=== PATIENT | male | born 1950 | race Caucasian/White ===

== ENCOUNTER 2018-10-10 10:39 | Observation (INO) | payer MEDICARE, OTHER ==
[2018-10-10] MEDS ORDERED: Colace 100 MG PO PRN (11:23)
[2018-10-10] MEDS ORDERED: TYLENOL 325 MG PO PRN (11:23)
[2018-10-10] MEDS ORDERED: solu-MEDROL 125 MG IV ONE (11:30)
[2018-10-10] MEDS ORDERED: Sodium Chloride 0.9% 10 ML FLUSH Syringe IV PRN (11:30)
[2018-10-10 11:48] LABS: BASOPHIL % 0.8 % (0.0-0.4); Basophil (Absolute #) 0.08 (0-0.4); Eosinophil % 5.3 % (0.00-5.0); Eosinophil (Absolute #) 0.52 (0-0.5); Granulocyte Absolute (ANC) 6.32 (1.4-6.9); Granulocytes % 64.7 % (36.0-66.0); Hematocrit 45.7 % (42-50); Hemoglobin 15.2 gm/dl (12.5-18.0); Lymphocyte (Absolute #) 1.21 (1.0-4.6); Lymphocytes % 12.4 % (24.0-44.0); Mean Cell Volume 89.1 fl (78-100); Mean Corpuscular Hemoglobin 29.6 pg (26-32); Mean Corpuscular Hgb Concent. 33.3 g/dl (32-36); Mean Platelet Volume 8.2 fl (6-9.5); Monocyte (Absolute #) 1.64 (0.0-1.3); Monocytes % 16.8 % (0.0-12.0); Platelet Count 202 K/mm3 (150-450); Red Blood Count 5.13 M/mm3 (4.1-5.6); Red Cell Distribution Width 16.1 % (11.5-14.0); White Blood Count 9.8 K/mm3 (4.0-10.5)
[2018-10-10 12:08] LABS: ALBUMIN 4.6 g/dL (3.5-5.0); ALKALINE PHOSPHATASE 78 U/L (38-126); ANION GAP 13.2 MEQ/L (5-15); BLOOD UREA NITROGEN 13 mg/dL (9-20); CHLORIDE 99 mmol/L (98-107); Calcium 9.5 mg/dL (8.4-10.2); Carbon Dioxide 30 mmol/L (22-30); Glucose 128 mg/dL (74-106); NT PRO BNP 143 pg/mL (0-900); Potassium 4.2 mmol/L (3.5-5.1); SGOT/AST 21 U/L (17-59); SGPT/ALT 15 U/L (0-50); SODIUM 139 mmol/L (137-145)
[2018-10-10 12:12] LABS: Slide Review 1 YES
[2018-10-10] MEDS ORDERED: NEURONTIN 300 MG PO PRN (12:13)
[2018-10-10] MEDS ORDERED: NON-FORMULARY ITEM (Ipratropium/Albuterol Sulfate [Combivent Inhaler] 15 GM) IH PRN (12:13)
[2018-10-10 12:29] LABS: INFLUENZA A NEGATIVE (NEGATIVE); INFLUENZA B NEGATIVE (NEGATIVE)
[2018-10-10 12:32] LABS: RESPIRATORY SYNCTIAL VIRUS POSITIVE (Negative)
--- NOTE | 2018-10-10 12:34 | XRAY ---
Indication: Short of breath. Fever and chills. Comparison: August 14, 2014. PA/lateral chest again demonstrates left pneumonectomy with compensatory hyperinflation of the right lung. No focal infiltrate, consolidation, or large effusion. Heart is not grossly enlarged. Bony thorax intact again with mild osteopenia and degenerative changes. Impression: Stable nonacute chest with chronic features.
[2018-10-10] MEDS: Zithromax 500 MG/ 250 ML NaCl Premix 500 MG/250 ML IVPB IV SCH (12:49)
[2018-10-10] MEDS: ENOXAPARIN SODIUM SQ SCH (12:49)
[2018-10-10] MEDS: ROCEPHIN 1 Gm-D5w 50 ml Bag** 1 G/50 ML IVPB IV SCH (12:49)
[2018-10-10] MEDS: Sodium Chloride 0.9% 10 ML FLUSH Syringe IV SCH ×2 (12:50→23:01)
[2018-10-10] MEDS ORDERED: OCEAN Nasal Spray NS PRN (13:56)
[2018-10-10] MEDS: solu-MEDROL 125 MG IV SCH ×2 (17:27→23:28)
[2018-10-10] MEDS: DUONEB 0.5-3 MG/3 ml Neb IH PRN ×2 (19:11→23:21)
[2018-10-10] MEDS ORDERED: CEPACOL SORE THROAT LOZENGE PO PRN (21:02)
[2018-10-10] MEDS ORDERED: Ambien 10 MG PO SCH (22:00)
[2018-10-11] MEDS: DUONEB 0.5-3 MG/3 ml Neb IH SCH ×3 (03:59→10:59)
[2018-10-11] MEDS: solu-MEDROL 125 MG IV SCH ×3 (05:37→11:51)
[2018-10-11] MEDS: Sodium Chloride 0.9% 10 ML FLUSH Syringe IV SCH ×2 (05:37→06:14)
[2018-10-11] MEDS ORDERED: Protonix 40MG Tablet PO SCH (10:00)
[2018-10-11] MEDS ORDERED: NON-FORMULARY ITEM (Omeprazole [Prilosec] 40 MG) PO SCH (10:00)
[2018-10-11] MEDS ORDERED: NON-FORMULARY ITEM (Sertraline Hcl 100 Mg [Zoloft 100 Mg] 100 MG) PO SCH (10:00)
[2018-10-11] MEDS ORDERED: ZOLOFT 50 MG TABLET PO SCH (10:00)
[2018-10-11] MEDS ORDERED: Flomax 0.4 MG PO SCH (10:00)
[2018-10-11] MEDS: ENOXAPARIN SODIUM SQ SCH ×2 (10:25→10:36)
[2018-10-11] MEDS: Zithromax 500 MG/ 250 ML NaCl Premix 500 MG/250 ML IVPB IV SCH (10:25)
[2018-10-11] MEDS: ROCEPHIN 1 Gm-D5w 50 ml Bag** 1 G/50 ML IVPB IV SCH (10:25)
[2018-10-11 11:04] VITALS: O2SAT 93
--- NOTE | 2018-10-11 12:08 | PCM.DCORD ---
- Discharge Discharge Date: 10/11/18 Disposition: Home, Self-Care Condition: Good Prescriptions: New Cefdinir 300 mg PO BID #14 capsule Prednisone 20 mg [Deltasone 20 mg] 20 mg PO UD #10 tablet Continue Sertraline HCl 100 mg [Zoloft 100 MG] 100 mg PO DAILY Zolpidem Tartrate [Ambien] 10 mg PO HS Omeprazole [Prilosec] 40 mg PO DAILY Ipratropium/Albuterol Sulfate [Combivent Inhaler] 15 gm IH UD PRN PRN Reason: breathing Gabapentin 1 tab PO TID PRN PRN Reason: Pain Tamsulosin HCl 0.4 mg [Flomax 0.4 MG] 1 tab PO DAILY Instructions: Respiratory Syncytial Virus, Adult (DC) Additional Instructions: Continue home oxygen. Return to ER or clinic if worsening shortness of breath, fever, nausea or vomiting or any other concerns. Follow up with: HAKEEM JURADO [Primary Care Provider] - 1 Week
[2018-10-11 12:23] VITALS: BP 113/77; PULSE 112
--- NOTE | 2018-10-14 13:36 | DS ---
ADMISSION DIAGNOSES: 1) Acute exacerbation of chronic obstructive pulmonary disease. 2) Severe chronic obstructive pulmonary disease. 3) History of left lung resection due to lung cancer. 4) Respiratory syncytial virus bronchiolitis. DISCHARGE DIAGNOSES: 1) ACUTE EXACERBATION OF CHRONIC OBSTRUCTIVE PULMONARY DISEASE. 2) SEVERE CHRONIC OBSTRUCTIVE PULMONARY DISEASE. 3) HISTORY OF LEFT LUNG RESECTION DUE TO LUNG CANCER. 4) RESPIRATORY SYNCYTIAL VIRUS BRONCHIIOLITIS. HISTORY OF PRESENT ILLNESS: This is a 68 year old patient of mine who presented to the clinic on 10/10/2018. He reported he started feeling bad two nights ago with fever and chills. The fever was tactile as he did not have thermometer. He reports that he then got very congested and had problems since them. He reports he has been unable to ambulate without his oxygen when usually he can at home. He has had a productive cough although he is not coughing a lot. He reported he was not taking fluids very well. He reports that he was supposed to have surgery on his prostate this coming Saturday. The patient overnight reports that his breathing was better. RT noticed that he seemed more confused in the middle of the night and the patient reports that may have just been a dream that he may have been dreaming. He denies any confusion at this time. He reports he has been able to eat, feels like his breathing is better. REVIEW OF SYSTEMS: No abdominal pain. No chest pain. He has some shortness of breath. No lower extremity edema. No rashes. No difficulty urinating. PAST MEDICAL HISTORY: Lung cancer status post lung resection. Chronic obstructive pulmonary disease. Depression. Chronic migraines. Hypoxia due to chronic obstructive pulmonary disease. PAST SURGICAL HISTORY: Hernia repair. Left lung removed [address] Brodie Chopra and Dr. Gilson Ibarra. Splenectomy. Colonoscopy in 2009. MEDICATIONS: Please see the home medication reconciliation list. ALLERGIES: SULFA. SOCIAL HISTORY: No tobacco use. He is a and lives alone. Former [employer]. FAMILY HISTORY: Noncontributory. PHYSICAL EXAMINATION: VITAL SIGNS: Temperature current 97.8F, heart rate 101, respiratory rate 24, blood pressure 130/77. Oxygen saturation 93% on nasal cannula. GENERAL: The patient is a pleasant talkative man sitting up in no acute distress. CVS: He has a regular rate and rhythm. No murmurs, gallops or rubs are appreciated. CHEST: He has decreased breath sounds on the left. Clear to auscultation on the right. No crackles or wheezes. ABDOMEN: Soft, nontender, nondistended. SKIN: Warm, dry and intact. EXTREMITIES: No clubbing, cyanosis or edema. LABORATORY DATA AND TESTS: CBC within normal limits. CMP with glucose 128. He was positive for respiratory syncytial virus, negative for influenza A and B. Chest x-ray did not show any acute changes. Please see the radiologist report for the full dictation. HOSPITAL COURSE: 1) ACUTE CHRONIC OBSTRUCTIVE PULMONARY DISEASE EXACERBATION: He was started on IV steroids, azithromycin and ceftriaxone. I will plan to discharge him on seven more days of Cefdinir 300 mg p.o. b.i.d. as well as prednisone 20 mg tablet two tablets p.o. daily for three days and then one tablet p.o. daily for four days, and one tablet p.o. daily for four days and will have him follow up with me in the clinic. Will continue oxygen at home as well as his breathing treatments. 2) SEVERE CHRONIC OBSTRUCTIVE PULMONARY DISEASE: Will continue with the above treatment. 3) HISTORY OF LEFT LUNG RESECTION FOR LUNG CANCER: He does remarkably well given the fact that he had his left lung removed. 4) RESPIRATORY SYNCYTIAL VIRUS BRONCHIOLITIS: Will continue supportive treatment at home. DISPOSITION: The patient was discharged to home in fair condition. DISCHARGE MEDICATIONS: Please see the discharge order.
== END 2018-10-11 12:55 | disposition home or self-care (01) ==
LOC: MED SURG 11:02
PROVIDERS: ADMIT Internal Medicine; ATTEND Internal Medicine
DX: J44.1 Chronic obstructive pulmonary disease with (acute) exacerbation (principal); J21.0 Acute bronchiolitis due to respiratory syncytial virus; J44.0 Chronic obstructive pulmonary disease with (acute) lower respiratory infection; Z85.118 Personal history of other malignant neoplasm of bronchus and lung; Z90.2 Acquired absence of lung [part of]; Z79.899 Other long term (current) drug therapy
CPT/HCPCS: 36415; 71046; 80053; 83880; 85025; 87040; 87631; 93005; 93268; 94150; 94640; 94760; 94762; G0378; J0456; J0696; J1650; J2930; A9270-GY

== ENCOUNTER 2018-10-12 02:39 | Emergency (ER) | payer MEDICARE, OTHER ==
[2018-10-12] MEDS ORDERED: DUONEB 0.5-3 MG/3 ml Neb IH ONE ×4 (03:06→07:49)
[2018-10-12] MEDS ORDERED: LEVOFLOXACIN 750MG/150ML D5W 750 MG/150 ML BAG IV STA (03:06)
[2018-10-12] MEDS ORDERED: solu-MEDROL 125 MG IV ONE (03:06)
[2018-10-12] MEDS ORDERED: solu-MEDROL 125 MG ONE (03:12)
[2018-10-12] MEDS ORDERED: LEVOFLOXACIN 750MG/150ML D5W 750 MG/150 ML BAG IV ONE (03:13)
[2018-10-12 03:18] LABS: BASOPHIL % 0.1 % (0.0-0.4); Basophil (Absolute #) 0.01 (0-0.4); Eosinophil (Absolute #) 0 (0-0.5); Granulocyte Absolute (ANC) 11.87 (1.4-6.9); Granulocytes % 80.6 % (36.0-66.0); Hematocrit 46.5 % (42-50); Hemoglobin 15.5 gm/dl (12.5-18.0); Lymphocyte (Absolute #) 0.92 (1.0-4.6); Lymphocytes % 6.3 % (24.0-44.0); Mean Cell Volume 86.4 fl (78-100); Mean Corpuscular Hemoglobin 28.8 pg (26-32); Mean Corpuscular Hgb Concent. 33.3 g/dl (32-36); Mean Platelet Volume 8.6 fl (6-9.5); Monocyte (Absolute #) 1.92 (0.0-1.3); Platelet Count 276 K/mm3 (150-450); Red Blood Count 5.38 M/mm3 (4.1-5.6); Red Cell Distribution Width 15.5 % (11.5-14.0); White Blood Count 14.7 K/mm3 (4.0-10.5)
[2018-10-12] MEDS ORDERED: XYLOCAINE 2% Uro-Jet TOP ONE (03:18)
[2018-10-12] MEDS ORDERED: XYLOCAINE 2% Uro-Jet ONE (03:20)
[2018-10-12 03:34] LABS: A-aADO2 61; ABG HEMOGLOBIN 15.5; ABG POTASSIUM 3.9 (3.5-5.1); ABG SITE RIGHT RADIAL; ALLEN TEST OK? YES; ARTERIAL BLD GAS O2 SATURATION 99.8 % (95-100); ARTERIAL BLOOD GAS BASE EXCESS 4.8 (-2.0-2.0); ARTERIAL BLOOD GAS FIO2 36 %; ARTERIAL BLOOD GAS PCO2 55 mmHg (35-45); ARTERIAL BLOOD GAS PO2 127 mmHg (75-100); ARTERIAL BLOOD GAS pH 7.37 (7.35-7.45); CARBOXYHEMOGLOBIN 1.7 % THgb (0.0-6.9); HCO3- 31.8 (22-28); HGB O2 SAT 96.9 g/dF (94-100); Lactic Acid 1.1 (0.4-2.0); Methhemoglobin 1.2 % (1.4-1.5); paO2 pAO1 0.68
[2018-10-12 03:36] LABS: INR 1.01 (0.8-3.0); PROTIME 11.7 SECONDS (8.83-12.87)
[2018-10-12 03:49] LABS: ALBUMIN 4.9 g/dL (3.5-5.0); ALKALINE PHOSPHATASE 84 U/L (38-126); ANION GAP 15.3 MEQ/L (5-15); BLOOD UREA NITROGEN 21 mg/dL (9-20); CHLORIDE 90 mmol/L (98-107); Calcium 10.2 mg/dL (8.4-10.2); Carbon Dioxide 34 mmol/L (22-30); Creatinine 1 0.64 mg/dL (0.66-1.25); Glucose 135 mg/dL (74-106); MAGNESIUM 2.4 mg/dL (1.6-2.3); NT PRO BNP 1040 pg/mL (0-900); Potassium 4.5 mmol/L (3.5-5.1); SGOT/AST 42 U/L (17-59); SGPT/ALT 25 U/L (0-50); SODIUM 135 mmol/L (137-145); Total Protein 8.7 g/dL (6.3-8.2)
[2018-10-12] MEDS ORDERED: Ativan 2 MG/1 ML VIAL IV ONE (04:51)
[2018-10-12] MEDS ORDERED: Ativan 2 MG/1 ML VIAL ONE (04:52)
[2018-10-12 05:51] LABS: Slide Review 1 YES
--- NOTE | 2018-10-12 06:44 | ERPHSYRPT ---
- History of Present Illness Source: patient Exam Limitations: no limitations Patient Subjective Stated Complaint: pt is alert and oriented. pt is brought in via ems. pt states that he was diagnosed and admitted here with RSV. pt discharged at 1200 on 10/11/18. pt states that he has been unable to urinate since then. pt is SOB and resp rate is 32 per minute. pt is lung sounds diminished on right side. no breath sounds on left. pt states he's had a left lobectomy. pt belly is distended and firm. Triage Nursing Assessment: see above Physician History: Pt is a 68 y/o male that presented to the ED secondary to inability to urinate. He was d/c on 10/11/18 from the hospital for RSV infection. Pt now is in the ED, with severe SOB, wheeze, and use of accessory muscles. Pt denies F/C/S. He is SOB, and dyspnic. Pt has no chest pain or palpitations. No N/V/D. He is suppose to have TURP surgery on Saturday, that is postponed secondary to his respiratory status, and now he is not able to urinate, and has bladder pressure. Timing/Duration: yesterday Cough Quality/Degree: productive cough Modifying Factors: Improves With: albuterol inhaler, albuterol nebulizer, exertion, lying down, oxygen Allergies/Adverse Reactions: Sulfa (Sulfonamide Antibiotics) [Sulfa(Sulfonamide Antibiotics)] Allergy (Mild, Verified 02/05/12 20:55) HIVES AND ITCHING Home Medications: Sertraline HCl 100 mg [Zoloft 100 MG] 100 mg PO DAILY 02/05/12 [History] Zolpidem Tartrate [Ambien] 10 mg PO HS 12/14/13 [History] Omeprazole [Prilosec] 40 mg PO DAILY 08/10/14 [History] Gabapentin 1 tab PO TID PRN 10/10/18 [History] Ipratropium/Albuterol Sulfate [Combivent Inhaler] 15 gm IH UD PRN 10/10/18 [ History] Tamsulosin HCl 0.4 mg [Flomax 0.4 MG] 1 tab PO DAILY 10/10/18 [History] Hx Tetanus, Diphtheria Vaccination/Date Given: No Hx Influenza Vaccination/Date Given: Yes Hx Pneumococcal Vaccination/Date Given: Yes (2013) Immunizations Up to Date: Yes - Review of Systems Constitutional: Fatigue Eyes: No Symptoms Ears, Nose, & Throat: No Symptoms Respiratory: Cough, Dyspnea, Dyspnea on Exertion (NARANJO), Wheezing Cardiac: No Chest Pain, No Syncope Abdominal/Gastrointestinal: No Abdominal Pain, No Nausea, No Vomiting, No Diarrhea Genitourinary Symptoms: Urinary Retention Musculoskeletal: No Back Pain, No Neck Pain Neurological: No Dizziness, No Focal Weakness, No Sensory Changes - Past Medical History Pertinent Past Medical History: Yes Neurological History: Migraines ENT History: No Pertinent History Cardiac History: No Pertinent History Respiratory History: Lung Cancer, Pneumonia Endocrine Medical History: No Pertinent History Musculoskeletal History: Arthritis, Osteoarthritis GI Medical History: No Pertinent History History: No Pertinent History Psycho-Social History: Anxiety Male Reproductive Disorders: No Pertinent History - Past Surgical History Past Surgical History: Yes Neuro Surgical History: No Pertinent History Cardiac: No Pertinent History Respiratory: Lobectomy, Other Gastrointestinal: Hernia Repair Genitourinary: No Pertinent History Musculoskeletal: No Pertinent History Male Surgical History: No Pertinent History Other Surgical History: spleenectomy 2010. , cataract surg. ginger. - Social History Smoking Status: Former smoker Exposure to second hand smoke: No Drug Use: none Patient Lives Alone: No - Nursing Vital Signs Nursing Vital Signs: Initial Vital Signs Temperature 99.4 F 10/12/18 02:50 Pulse Rate 117 H 10/12/18 02:50 Respiratory Rate 32 H 10/12/18 02:50 Blood Pressure 143/101 10/12/18 02:50 O2 Sat by Pulse Oximetry 97 10/12/18 02:50 Pain Scale Pain Intensity 6 - Physical Exam General Appearance: moderate distress, alert, anxiety, lethargy, thin Eye Exam: PERRL/EOMI, eyes nml inspection Ears, Nose, Throat Exam: normal ENT inspection, TMs normal, pharynx normal, moist mucous membranes Respiratory Exam: respiratory distress, accessory muscle use, prolonged expirations, wheezing Cardiovascular Exam: tachycardia Gastrointestinal/Abdomen Exam: soft, No tenderness Male Genitalia Exam: other (Urinary retention ) Back Exam: normal inspection, No CVA tenderness, No vertebral tenderness Extremity Exam: normal inspection, normal range of motion Neurologic Exam: alert, oriented x 3, cooperative, normal mood/affect, sensation nml, No motor deficits SpO2: 97 - Course Nursing assessment & vital signs reviewed: Yes EKG Interpreted by Me: Sinus Tach (120s) Ordered Tests: Active Orders 24 hr Category Date Time Status Application Project Leader STAT Care 10/12/18 03:09 Active Mclean [Catheter-Cope Mclean] STAT Care 10/12/18 03:11 Active IV Insertion STAT Care 10/12/18 03:06 Active Oxygen-ED Only Nasal Cannula 4 lpm Care 10/12/18 03:06 Active CHEST WITH CONTRAST [CT] Stat Exams 10/12/18 04:31 Taken ARTERIAL BLOOD GASES Stat Lab 10/12/18 03:15 Completed BLOOD CULTURE Stat Lab 10/12/18 03:30 Received CBC W DIFF Stat Lab 10/12/18 02:47 Completed CMP Stat Lab 10/12/18 02:47 Completed CULTURE,SPUTUM Stat Lab 10/12/18 03:08 Uncollected D-DIMER QUANTITATION Stat Lab 10/12/18 02:47 Completed Lactic Acid Stat Lab 10/12/18 03:15 Completed MAGNESIUM Stat Lab 10/12/18 02:47 Completed NT PRO BNP Stat Lab 10/12/18 02:47 Completed PROTIME WITH INR Stat Lab 10/12/18 02:47 Completed TROPONIN Q3H Lab 10/12/18 02:47 Completed TROPONIN Q3H Lab 10/12/18 06:15 Completed TROPONIN Q3H Lab 10/12/18 09:15 Ordered TROPONIN Q3H Lab 10/12/18 12:15 Ordered TROPONIN Q3H Lab 10/12/18 15:15 Ordered TROPONIN Q3H Lab 10/12/18 18:15 Ordered TROPONIN Q3H Lab 10/12/18 21:15 Ordered Peak Expiratory Flow Rate ONCE RT 10/12/18 03:58 Active Respiratory Nebulizer STAT RT 10/12/18 03:10 Completed Respiratory Therapy Assessment DAILY RT 10/12/18 03:57 Active Medication Summary Discontinued Medications Generic Name Dose Route Start Last Admin Trade Name Freq PRN Reason Stop Dose Admin Albuterol/Ipratropium 3 ml 10/12/18 03:06 10/12/18 03:27 Duoneb 0.5-3 Mg/3 Ml Neb IH 10/12/18 03:07 3 ml STAT ONE Administration Albuterol/Ipratropium Confirm 10/12/18 03:16 Duoneb 0.5-3 Mg/3 Ml Neb Administered 10/12/18 03:17 Dose 3 ml IH .STK-MED ONE Levofloxacin/Dextrose 750 mg in 150 mls @ 100 mls/hr 10/12/18 03:06 10/12/18 04:48 Levofloxacin 750mg/150ml D5w IV 10/12/18 04:35 Infused STAT STA Infusion Levofloxacin/Dextrose Confirm 10/12/18 03:13 Levofloxacin 750mg/150ml D5w Administered 10/12/18 03:14 Dose 750 mg in 150 mls @ ud IV .STK-MED ONE Lidocaine HCl 200 mg 10/12/18 03:18 10/12/18 03:25 Xylocaine 2% Uro-Jet TOP 10/12/18 03:19 200 mg STAT ONE Administration Lidocaine HCl Confirm 10/12/18 03:20 Xylocaine 2% Uro-Jet Administered 10/12/18 03:21 Dose 200 mg .ROUTE .STK-MED ONE Lorazepam 1 mg 10/12/18 04:51 10/12/18 04:56 Ativan 2 Mg/1 Ml Vial IV 10/12/18 04:52 1 mg STAT ONE Administration Lorazepam Confirm 10/12/18 04:52 Ativan 2 Mg/1 Ml Vial Administered 10/12/18 04:53 Dose 2 mg .ROUTE .STK-MED ONE Methylprednisolone Sodium Succinate 125 mg 10/12/18 03:06 10/12/18 03:15 Solu-Medrol 125 Mg IV 10/12/18 03:07 125 mg STAT ONE Administration Methylprednisolone Sodium Succinate Confirm 10/12/18 03:12 Solu-Medrol 125 Mg Administered 10/12/18 03:13 Dose 125 mg .ROUTE .STK-MED ONE Lab/Rad Data: Laboratory Result Diagrams 10/12/18 02:47 10/12/18 02:47 Laboratory Results 10/12/18 10/12/18 10/12/18 Range/Units 06:15 03:15 02:47 WBC (4.0-10.5) K/mm3 RBC (4.1-5.6) M/mm3 Hgb (12.5-18.0) gm/dl Hct (42-50) % MCV (78-100) fl MCH (26-32) pg MCHC (32-36) g/dl RDW (11.5-14.0) % Plt Count (150-450) K/mm3 MPV (6-9.5) fl Gran % (36.0-66.0) % Eos # (Auto) (0-0.5) Absolute Lymphs (auto) (1.0-4.6) Absolute Monos (auto) (0.0-1.3) Lymphocytes % (24.0-44.0) % Monocytes % (0.0-12.0) % Eosinophils % (0.00-5.0) % Basophils % (0.0-0.4) % Absolute Granulocytes (1.4-6.9) Basophils # (0-0.4) PT (8.83-12.87) SECONDS INR (0.8-3.0) D-Dimer (215-500) ng/mL Puncture Site RIGHT RADIAL pCO2 55 H (35-45) mmHg pO2 127 H* (75-100) mmHg Base Excess 4.8 H (-2.0-2.0) O2 Saturation 96.9 (94-100) g/dF ABG pH 7.37 (7.35-7.45) ABG HCO3 31.8 H* (22-28) ABG O2 Sat (Measured) 99.8 (95-100) % Aron Test YES A-a Gradient 61 a/A Ratio 0.68 Hemoglobin 15.5 Carboxyhemoglobin 1.7 (0.0-6.9) % THgb Methemoglobin 1.2 L (1.4-1.5) % Temperature 37.0 C POC O2 Flow Rate 36 % Sodium (137-145) mmol/L Potassium 3.9 (3.5-5.1) mmol/L Chloride (98-107) mmol/L Carbon Dioxide (22-30) mmol/L Anion Gap (5-15) MEQ/L BUN (9-20) mg/dL Creatinine (0.66-1.25) mg/dL Estimated GFR ML/MIN Glucose (74-106) mg/dL Lactic Acid 1.1 (0.4-2.0) Calcium (8.4-10.2) mg/dL Magnesium (1.6-2.3) mg/dL Total Bilirubin (0.2-1.3) mg/dL AST (17-59) U/L ALT (0-50) U/L Alkaline Phosphatase (38-126) U/L Troponin I < 0.012 < 0.012 (0.000-0.034) ng/mL NT-Pro-B Natriuret Pep (0-900) pg/mL Serum Total Protein (6.3-8.2) g/dL Albumin (3.5-5.0) g/dL Slides for Path Review 10/12/18 10/12/18 10/12/18 Range/Units 02:47 02:47 02:47 WBC 14.7 H (4.0-10.5) K/mm3 RBC 5.38 (4.1-5.6) M/mm3 Hgb 15.5 (12.5-18.0) gm/dl Hct 46.5 (42-50) % MCV 86.4 (78-100) fl MCH 28.8 (26-32) pg MCHC 33.3 (32-36) g/dl RDW 15.5 H (11.5-14.0) % Plt Count 276 D (150-450) K/mm3 MPV 8.6 (6-9.5) fl Gran % 80.6 H (36.0-66.0) % Eos # (Auto) 0 (0-0.5) Absolute Lymphs (auto) 0.92 L (1.0-4.6) Absolute Monos (auto) 1.92 H (0.0-1.3) Lymphocytes % 6.3 L (24.0-44.0) % Monocytes % 13.0 H (0.0-12.0) % Eosinophils % 0.0 (0.00-5.0) % Basophils % 0.1 (0.0-0.4) % Absolute Granulocytes 11.87 H (1.4-6.9) Basophils # 0.01 (0-0.4) PT 11.7 (8.83-12.87) SECONDS INR 1.01 (0.8-3.0) D-Dimer 1135 H* (215-500) ng/mL Puncture Site pCO2 (35-45) mmHg pO2 (75-100) mmHg Base Excess (-2.0-2.0) O2 Saturation (94-100) g/dF ABG pH (7.35-7.45) ABG HCO3 (22-28) ABG O2 Sat (Measured) (95-100) % Aron Test A-a Gradient a/A Ratio Hemoglobin Carboxyhemoglobin (0.0-6.9) % THgb Methemoglobin (1.4-1.5) % Temperature C POC O2 Flow Rate % Sodium 135 L (137-145) mmol/L Potassium 4.5 (3.5-5.1) mmol/L Chloride 90 L (98-107) mmol/L Carbon Dioxide 34 H (22-30) mmol/L Anion Gap 15.3 H (5-15) MEQ/L BUN 21 H (9-20) mg/dL Creatinine 0.64 L (0.66-1.25) mg/dL Estimated GFR > 60.0 ML/MIN Glucose 135 H (74-106) mg/dL Lactic Acid (0.4-2.0) Calcium 10.2 (8.4-10.2) mg/dL Magnesium 2.4 H (1.6-2.3) mg/dL Total Bilirubin 0.40 (0.2-1.3) mg/dL AST 42 (17-59) U/L ALT 25 (0-50) U/L Alkaline Phosphatase 84 (38-126) U/L Troponin I (0.000-0.034) ng/mL NT-Pro-B Natriuret Pep 1040 H (0-900) pg/mL Serum Total Protein 8.7 H (6.3-8.2) g/dL Albumin 4.9 (3.5-5.0) g/dL Slides for Path Review YES - Progress Progress: unchanged Air Movement: poor Progress Note: 10/12/18 06:57 Pt was signed out to Dr peterson. 10/12/18 07:11 Pt had Solu Medrol IV, neb treatments and Levaquin. He had elevated D dimer, and a CT for PE showed small filling defect, but he had recurrence of his Lung CA, on R, with enlarged adrenal nodule, that all represent metastatic dsx. As pt has recent diagnosis of RSV, and is now in respiratory failure, [facility] Blood Culture(s) Obtained: No Antibiotics given: Yes - Departure Time of Disposition: 07:19 Departure Disposition: Transfer Clinical Impression: Respiratory failure with hypoxia Condition: Poor Critical Care Time: Yes Critical Care Time(excluding separately billable procedures): 30-74 minutes Referrals: HAKEEM JURADO [Primary Care Provider] - Additional Instructions: Pt [facility] be [facility] Dr Schafer is accepting.
[2018-10-12 07:28] VITALS: BP 141/97
[2018-10-12 08:10] VITALS: PULSE 112; O2SAT 97
--- NOTE | 2018-10-12 09:22 | XRAY ---
Indication: Short of breath. Elevated d-dimer. Multiple contiguous axial images obtained through the chest using 80 cc of Isovue-370 contrast and PE protocol. Comparison: CT chest without contrast September 22, 2013. There is satisfactory opacification of the pulmonary arteries to include the lobar and segmental branches. However mild respiration artifact limits evaluation of the more distal lobar and segmental branches. No filling defect or pulmonary embolus. Heart is not enlarged. Aorta is mildly arteriosclerotic without aneurysm/dissection. No pathologic mediastinal/hilar lymphadenopathy. Examination of the lung parenchyma again demonstrates left pneumonectomy with heart and mediastinal structures translated to the left. Stable mild right lung pulmonary emphysema. New small patchy right lower lobe interstitial alveolar opacity. No suspicious pulmonary mass or effusion. Bony thorax intact again with mild degenerative changes throughout the spine and postsurgical remote left posterior rib deformities. Limited upper abdomen demonstrates stable small left adrenal adenoma. Impression: 1. Pulmonary embolus evaluation limited by respiration artifact. No obvious pulmonary embolus. 2. New right lower lobe patchy interstitial alveolar opacity. 3. Stable left pneumonectomy, pulmonary emphysema, and left adrenal adenoma. Comment: Preliminary interpretation was made by [facility] who reports tiny right lower lobe pulmonary embolus only seen on one slice which I do not believe is real and more likely artifactual due to respiration. CTDI 10.90
== END 2018-10-12 08:27 | disposition short-term general hospital (02) ==
LOC: ED 02:39
DX: J96.91 Respiratory failure, unspecified with hypoxia (principal); R79.89 Other specified abnormal findings of blood chemistry; Z85.118 Personal history of other malignant neoplasm of bronchus and lung; M19.90 Unspecified osteoarthritis, unspecified site; F41.9 Anxiety disorder, unspecified; B97.4 Respiratory syncytial virus as the cause of diseases classified elsewhere; Z79.899 Other long term (current) drug therapy; R06.02 Shortness of breath
CPT/HCPCS: 36000; 36415; 36600; 51702; 71260; 80053; 82375; 82803; 83605; 83735; 83880; 84484; 85025; 85379; 85610; 87040; 93041; 94150; 94640; 96365; 96374; 96375; 99285; J1956; J2060; J2930; A9270-GY